=== PATIENT | male | born 1970 | race Hispanic/Latino ===

== ENCOUNTER 2024-05-31 11:31 | Emergency (ER) | payer SELFPAY ==
[2024-05-31 11:33] VITALS: BP 169/94
--- NOTE | 2024-05-31 13:22 | ED.GENMED ---
History of Present Illness
General
Chief Complaint: Male Genito-Urinary Symptoms
Source: patient
Exam Limitations: none
Time Seen by Provider: 05/31/24 12:46
History of Present Illness
History of Present Illness:
53-year-old male with worsening pain to the left scrotum and groin over the past 2 to 3 days. The pain is significant this morning he describes as a burning sensation. There is associated swelling. He states over the past 3 weeks she has had
intermittent swelling to his scrotum which seem to disappear by the time the morning came however as work proceeded throughout the day he noted increased pain and swelling to the left side of the scrotum. He works for a [employer]. He states
this initially started while working. He notes now he has abdominal pain. He denies nausea or vomiting. No fever. He is urinating well.
Past History
Past History
ED Past Medical History: None
ED Past Surgical History: None
Social History
Tobacco: Non-smoker
Alcohol: None
Phy Exam
Physical Exam
Physical Exam:
General: Well-appearing male no acute respiratory distress
HEENT: Normocephalic atraumatic
Heart: Regular rate and rhythm no murmurs
Lungs: Clear no wheeze
Abdomen: Soft nontender
exam: Uncircumcised male. Significant swelling and tenderness about the left side of the scrotum. Skin is tight. No obvious erythema
Course
Orders/Labs/Results
Orders:
Orders
05/31/24 11:35
US Scrotum Urgent
Comment:
Reason For Exam: L testicular pain and swelling
05/31/24 13:15
CT Abd/pelvis W Iv Cont Urgent
Comment:
Reason For Exam: left scrotal pain, possible hernia
05/31/24 13:21
Ketorolac [Toradol] 15 mg IV NOW STA
05/31/24 13:28
Complete Blood Count/With Diff Urgent
Comprehensive Metabolic Panel Urgent
Lactic Acid Q4H
Comment: CANCEL 2nd LACTIC ACID IF 1st LACTIC ACID IS LESS THAN 2
Abnormal Lab Results
05/31/24
13:28
MCH 31.9 H pg
(27.0-31.0)
MPV 10.7 H fL
(7.4-10.4)
Absolute Lymphs (auto) 0.9 L 10^3/uL
(1.2-3.4)
Lymphocytes % 18.0 L %
(20.5-51.1)
Monocytes % 11.1 H %
(1.7-9.3)
BUN 7 L mg/dl
(9-20)
Glucose 107 H mg/dl
(70-99)
05/31/24 13:28
05/31/24 13:28
Vital Signs
Initial and Last Documented VS:
Initial Vital Signs
Temp Pulse Resp BP Pulse Ox
98.8 F 60 20 169/94 100
05/31/24 11:33 05/31/24 11:33 05/31/24 11:33 05/31/24 11:33 05/31/24 11:33
Last Documented Vital Signs
Temp Pulse Resp BP Pulse Ox
98.8 F 59 20 127/77 100
05/31/24 11:33 05/31/24 15:04 05/31/24 15:04 05/31/24 15:04 05/31/24 15:04
MDM/Problems Addressed
Differential Diagnosis Includes:
Scrotal pain. Consider torsion versus hydrocele versus hernia versus abscess
Ultrasound of the scrotum was ordered through triage which I reviewed and demonstrates a hydrocele however clinical exam more concerning given the tenderness and his description of intermittent swelling over the past 3 weeks now it feels stuck.
Question possible inguinal hernia. Will order labs and CT to further evaluate
*Critical Care Note
Total Time (30-74mins, 75-104mins- exclusive of procedures): Not Applicable
Update Note
Update Note:
US and CT show hydrocele. NO hernia. Labs ok. Will refer to urology. STable for discharge.
ED Attending Note
-
Portions of this chart may have been created with voice recognition software.� Occasional wrong word or��sound alike� substitutions may have occurred due to the inherent limitations of voice recognition software.
Discharge Plan
Departure
Patient Disposition: Home (Routine Discharge)
Date of Disposition: 05/31/24
Time of Disposition: 16:36
Patient with high blood pressure during this ER visit?: No
Discharge Problem:
Hydrocele
Instructions: Hydrocele
Prescriptions:
New
meloxicam 7.5 mg tablet
7.5 mg PO BID Qty: 20 0RF
No Action
ibuprofen 800 mg Tablet
800 mg PO Q4HPRN PRN (Reason: mild pain)
acetaminophen [Tylenol Extra Strength] 500 mg Tablet
1,500 mg PO Q4HPRN PRN (Reason: mild pain)
Referrals:
Balbir Carlson MD [Active] -
NONE,* [Family Provider] -
Stand Alone Forms: Return to Work
Activity Restrictions/Additional Instructions:
Use formfitting underwear. Take anti-inflammatories as needed for pain. Follow-up with urology.
Interventions
Interventions:
*Risk Screen - Suicide Last Done: 05/31/24 11:34
ED- Fall Risk Assessment Last Done: 05/31/24 15:05
*ED COVID-19 Vaccine History Last Done: 05/31/24 11:35
ED-Male Genitourinary Assessment Last Done: 05/31/24 15:05
Discharge Date and Time
Print Language: ITALIAN
[2024-05-31] MEDS: TORADOL 15 MG IV (13:29)
[2024-05-31 13:40] LABS: % Basophils 0.4 % (0-2); % Immature Granulocytes 0.4 % (0-0.5); % Monocytes 11.1 % (1.7-9.3); % Neutrophils 69.1 % (42.2-75.2); Absolute Eosinophils 0.1 10^3/uL (0-0.7); Absolute Lymphocytes 0.9 10^3/uL (1.2-3.4); Absolute Monocytes 0.6 10^3/uL (0.1-0.6); Absolute Neutrophils 3.5 10^3/uL (1.4-6.5); Hematocrit 46.4 % (39.0-52.0); Hemoglobin 16.3 g/dL (13.0-18.0); Mean Corp Hgb Conc. 35.1 g/dL (33.0-37.0); Mean Corpuscular Hgb 31.9 pg (27.0-31.0); Mean Corpuscular Volume 90.8 fL (80.0-94.0); Mean Platelet Volume 10.7 fL (7.4-10.4); Nucleated Red Blood Cells % 0 % (-); Platelet Count 208 10^3/uL (130-400); Red Blood Cell Count 5.11 10^6/uL (4.70-6.10); White Blood Cell Count 5.1 10^3/uL (4.8-10.8)
[2024-05-31 13:49] LABS: Lactic Acid 1.1 mmol/L (0.7-2.0)
[2024-05-31 13:50] LABS: ALT (SGPT) 29 U/L (0-50); AST (SGOT) 25 U/L (17-59); Albumin 4.7 g/dl (3.5-5.0); Alkaline Phosphatase 49 U/L (38-126); Blood Urea Nitrogen 7 mg/dl (9-20); Calcium 9.9 mg/dl (8.4-10.2); Carbon Dioxide 26 mmol/L (22-30); Chloride 106 mmol/L (98-107); Glucose 107 mg/dl (70-99); Potassium 4.6 mmol/L (3.5-5.1); Sodium 143 mmol/L (135-145); Total Bilirubin 1.2 mg/dl (0.2-1.3); Total Protein 7.1 g/dl (6.3-8.2); eGFR > 60.00
[2024-05-31 15:04] VITALS: BP 127/77
== END 2024-05-31 17:07 | disposition home or self-care (01) ==
LOC: EMR 11:31
PROVIDERS: Physician Assistant; EMERGENCY PHYSICIAN Emergency Medicine
DX: N43.3 Hydrocele, unspecified (principal); N50.82 Scrotal pain
CPT/HCPCS: 96374; 99284; 74177; 76870; 80053; 83605; 85025; 93976; Q9967

== ENCOUNTER 2024-09-10 06:15 | Day surgery (SDC) | payer OTHER, SELFPAY ==
[2024-09-01 13:43] VITALS: BMI 23.0
[2024-09-01 13:57] LABS: Hemoglobin 15.6 g/dL (13.0-18.0); Mean Corp Hgb Conc. 34.7 g/dL (33.0-37.0); Mean Corpuscular Hgb 31.6 pg (27.0-31.0); Mean Corpuscular Volume 91.3 fL (80.0-94.0); Mean Platelet Volume 10.6 fL (7.4-10.4); Platelet Count 266 10^3/uL (130-400); Red Blood Cell Count 4.93 10^6/uL (4.70-6.10); Red Cell Dist. Width 12.9 % (11.5-14.5); White Blood Cell Count 6.8 10^3/uL (4.8-10.8)
[2024-09-01 14:11] LABS: Blood Urea Nitrogen 10 mg/dl (9-20); Calcium 9.5 mg/dl (8.4-10.2); Carbon Dioxide 25 mmol/L (22-30); Chloride 102 mmol/L (98-107); Estimated Creatinine Clearance 117 ml/min; Glucose 92 mg/dl (70-99); Sodium 138 mmol/L (135-145); eGFR > 60.00
[2024-09-10] VITALS (7 sets, daily range): BP systolic 108–136; BP diastolic 60–87; BMI 23.0
[2024-09-10] MEDS: NORMOSOL-R/PLASMALYTE-A 1000 IV (07:04)
== END 2024-09-10 10:33 | disposition home or self-care (01) ==
LOC: SDS 06:15
PROVIDERS: ATTENDING PHYSICIAN Specialist
DX: N43.2 Other hydrocele (principal)
CPT/HCPCS: 55040; 88302; 36415; 80048; 85027; 93005